=== PATIENT | female | born 1970 | race African-American/Black ===

== ENCOUNTER 2017-05-20 14:21 | Emergency (ER) | payer BC, OTHER ==
[~2017-05-20] VITALS: Ht 160 cm; Wt 122.0 kg
[2017-05-20 14:59] VITALS: BP 178/99
[2017-05-20] MEDS ORDERED: CYCLOBENZAPRINE10 MG ORAL (15:29)
[2017-05-20 15:36] VITALS: BP 178/99
--- NOTE | 2017-05-20 20:08 | Emergency Room Report ---
History of Present Illness General Chief Complaint: Shoulder Injury Source: Patient Present Illness HPI 47-year-old female presents ED for evaluation. Patient is an employee at [employer]. States that upstairs she was moving heavy furniture and felt sharp pain in her right shoulder today. Pain is an 8 at 10, sharp, nonradiating, worse with abduction. Denies any other injuries. No other aggravating or relieving factors. Denies any other associated symptom Allergies: Coded Allergies: No Known Allergies (Verified Allergy, Unknown, 09/01/10) Patient History Past Medical History: HTN Past Surgical History: none Pertinent Family History: none Social History: Denies: alcohol use, drug use, smoking Now: No Immunizations: UTD Reviewed Nursing Documentation: PMH: Agreed, PSxH: Agreed Nursing Documentation-PMH Past Medical History: No History, Except For Hx Hypertension: Yes Review of Systems All Other Systems: negative except mentioned in HPI Physical Exam Vital Signs Date Time Temp Pulse Resp B/P Pulse Ox O2 Delivery O2 Flow Rate FiO2 05/20/17 14:21 98.2 91 19 182/104 100 Room Air Sp02 EP Interpretation: reviewed, normal General Appearance: no apparent distress, alert, GCS 15, non-toxic, obese Head: normocephalic Eyes: bilateral eye PERRL, bilateral eye normal inspection ENT: normal ENT inspection Neck: full range of motion Respiratory: normal inspection Cardiovascular #1: normal inspection Gastrointestinal: normal inspection Rectal: deferred Genitourinary: no CVA tenderness Musculoskeletal: tender - R shoulder. full passive ROM Neurologic: alert, oriented x3, responsive, motor strength/tone normal, sensory intact, speech normal Psychiatric: normal inspection Skin: normal inspection Lymphatic: normal inspection Procedures Splinting Splinting : Consent: Verbal Pre-Made Type: shoulder sling Pre-Proc Neuro Vasc Exam: normal Post-Proc Neuro Vasc Exam: normal Patient Tolerated: Well Complications: None Medical Decision Making Diagnostic Impression: Primary Impression: Right shoulder strain Qualified Codes: S46.911A - Strain of unspecified muscle, fascia and tendon at shoulder and upper arm level, right arm, initial encounter ER Course Hospital Course 47-year-old F presents to ED complaining of R shoulder pain s/p moving heavy boxes Differential diagnoses include: Fracture, dislocation, sprain, contusion Clinical course Patient placed on stretcher. After initial history and physical, I ordered Xrays of R shoulder. patient delcined pain meds Xrays prelim read shows no acute fracture/dislocation. placed in sling Diagnosis - right shoulder sprain Stable and discharged to home with prescription for flexeril. apply ice. weight bear as tolerated. Followup with PMD. Return to ED if symptoms recur or worsen Other X-Ray Diagnostic Results Other X-Ray Diagnostic Results : X-Ray ordered: R shoulder # of Views/Limited Vs Complete: 3 View Indication: Pain EP Interpretation: Yes Interpretation: no dislocation, no soft tissue swelling, no fractures Impression: No acute disease Interpreting ER Provider: Electronically signed by Nawaf Saldaña MD Last Vital Signs Date Time Temp Pulse Resp B/P Pulse Ox O2 Delivery O2 Flow Rate FiO2 05/20/17 15:36 98.1 94 17 178/99 100 Room Air Status: improved Disposition: HOME, SELF-CARE Condition: Stable Scripts Cyclobenzaprine Hcl* (FLEXERIL*) 10 Mg Tablet 10 MG ORAL TID Y for Muscle Spasm, #20 TAB Prov: NAWAF SALDAÑA M.D. 05/20/17 Departure Forms: Return to Work Return to Work Date: May 22, 2017 Work Restrictions: No Heavy Lifting Patient Instructions: Shoulder Sprain NAWAF SALDAÑA M.D. May 20, 2017 20:08
--- NOTE | 2017-05-21 10:31 | Diagnostic Imaging Report ---
Indication: PAIN Technique: 3 views of the right shoulder Comparison: none Findings: No acute fractures. No dislocations. Tiny crescentic focus of calcification near the greater tuberosity may represent calcific tendinosis. Impression:No acute process
== END 2017-05-20 15:37 | disposition home or self-care (01) ==
LOC: EMR 14:45
DX: S46.911A Strain of unspecified muscle, fascia and tendon at shoulder and upper arm level, right arm, initial encounter (principal); I10 Essential (primary) hypertension; X50.0XXA Overexertion from strenuous movement or load, initial encounter; Y92.239 Unspecified place in hospital as the place of occurrence of the external cause; Y99.0 Civilian activity done for income or pay
CPT/HCPCS: 29240; 99283